=== PATIENT | male | born 1995 | race Caucasian/White ===

== ENCOUNTER 2021-10-06 14:38 | Emergency (ER) | payer OTHER ==
[2021-10-06 18:07] LABS: HEMOGLOBIN 16.6 gm/dl (14.0-17.5); RED BLOOD COUNT 4.56 M/UL (4.20-5.50); WHITE BLOOD COUNT 7.2 K/UL (4.5-11.0)
[2021-10-06 19:22] LABS: BUN/CREATININE RATIO 17 (0-10)
[2021-10-06] MEDS ORDERED: CLEOCIN HCL300 MG PO (20:40)
== END 2021-10-06 22:44 | disposition home or self-care (01) ==
LOC: ER1 14:38
PROVIDERS: Physician Assistant
DX: L03.115 Cellulitis of right lower limb (principal); Z20.822 Contact with and (suspected) exposure to COVID-19; J44.9 Chronic obstructive pulmonary disease, unspecified; E11.9 Type 2 diabetes mellitus without complications; I10 Essential (primary) hypertension; F17.200 Nicotine dependence, unspecified, uncomplicated
CPT/HCPCS: 73701; 80053; 83605; 85025; 85652; 86140; 87040; 99284; Q9967; U0002